=== PATIENT | female | born 1960 | race Caucasian/White ===

== ENCOUNTER 2021-04-19 09:49 | Day surgery (SDC) | payer BC, OTHER ==
[~2021-04-19 09:49] MED LIST: Lactated Ringers 1,000 ML IV SCH; Sodium Chloride 0.9% 10 ML Syringe FLUSH PRN
[2021-04-19] MEDS ORDERED: fentaNYL 100 MCG/2 ML SDV ONE (10:36)
[2021-04-19] MEDS ORDERED: Propofol 200 MG/20 ML SDV ONE ×2 (10:36→11:26)
--- NOTE | 2021-04-20 07:16 | OR ---
PREOPERATIVE DIAGNOSIS: History of ulcerative colitis with rectal bleeding over the past month. This is more prominent than previous episodes. Her last colonoscopy was 02/2018 and revealed a 12 cm stretch of proctitis at that time. She had previously seen GI in [place]. Lately, she has been using Proctofoam, but not the last couple of days in preparation of the colonoscopy. She is also on Simponi for both her rheumatoid arthritis as well as ulcerative colitis. POSTOPERATIVE DIAGNOSES: 1. 5 cm stretch of moderate proctitis. Cold biopsy x4 bites taken. 2. Long tortuous colon. 3. Normal-appearing distal ileum. Cold biopsy x2 bites taken. 4. Otherwise, normal-appearing colonic mucosa. Random biopsies were taken and by right colon, transverse colon, left colon, and distal sigmoid colon. PROCEDURE: Colonoscopy with cold biopsies taken from 6 different sites using cold forceps. SURGEON: Aubrey Brian M.D. ANESTHESIA: Monitored anesthesia care. BOWEL PREP: Good. DESCRIPTION OF PROCEDURE: Caitlin is a 60-year-old female who was brought to the endoscopy suite after discussing risks and benefits of the procedure. Informed consent was obtained for conscious sedation and colonoscopy with or without biopsy and/or polypectomy. We also discussed possibility of missed lesions. Pre-procedure exam was unremarkable. IV, oxygen, and monitors were placed. The patient was placed in the left lateral decubitus position. Sedation was administered and a digital rectal exam was performed and remarkable for some noninflamed external hemorrhoidal skin tags. Colonoscope was passed in the rectum and slowly advanced all the way to the cecum. The patient did have a long tortuous colon and did require lots of scope maneuvering as well as abdominal pressure and moving the patient onto her back. The cecum was viewed and photographed. Ileocecal valve was able to be intubated at this time and was normal in appearance. Cold biopsy x2 bites taken from the distal ileum. The colonoscope was slowly withdrawn. Mucosa closely observed in direct circumferential manner. Random biopsies were taken and by each segment, which included the right colon, transverse colon, left colon, and distal sigmoid colon. The ascending colon, otherwise unremarkable. Transverse colon, unremarkable. Descending colon, unremarkable. Sigmoid colon, unremarkable. Retroflexion was performed and the distal rectal mucosa was moderately inflamed in the last 5 cm or so. Cold biopsy x4 bites taken. Scope was removed. The patient tolerated the procedure well. The patient was monitored until that baseline status. Discharge instructions were reviewed and the patient was discharged in good condition. COMPLICATIONS: None. TOTAL TIME: 42 minutes. ESTIMATED BLOOD LOSS: 3 to 4 mL as the rectal area was quite friable and bled easily. RECOMMENDATIONS/FOLLOWUP: We will await results of path report and send a letter with results. The patient can resume her Proctofoam which should work well at controlling the distal proctitis. If ongoing symptoms, I would encourage her to follow up with Gastroenterology. I would like to kindly thank Dr. Lao for this referral. DMB: 04/19/2021 13:02:55 MODL: 04/19/2021 15:08:41 /[id number]
== END 2021-04-19 13:00 | disposition home or self-care (01) ==
LOC: VM.SDS 09:49
PROVIDERS: ATTEND Family Medicine
DX: K51.911 Ulcerative colitis, unspecified with rectal bleeding (principal); K62.89 Other specified diseases of anus and rectum; E03.9 Hypothyroidism, unspecified; Z79.899 Other long term (current) drug therapy; Z88.8 Allergy status to other drugs, medicaments and biological substances; Z88.2 Allergy status to sulfonamides; E66.9 Obesity, unspecified; K21.9 Gastro-esophageal reflux disease without esophagitis; Z98.890 Other specified postprocedural states
CPT/HCPCS: 00811; J2704; J3010; J7120

== ENCOUNTER 2024-04-15 08:32 | Day surgery (SDC) | payer BC, OTHER ==
[2024-04-15] MEDS: Lactated Ringers 1,000 ML IV SCH (08:49)
[2024-04-15] MEDS ORDERED: fentaNYL 100 MCG/2 ML SDV ONE (09:12)
[2024-04-15] MEDS ORDERED: Propofol 200 MG/20 ML SDV ONE (09:12)
== END 2024-04-15 12:10 | disposition home or self-care (01) ==
LOC: VM.SDS 08:32
PROVIDERS: ATTEND Family Medicine
DX: K62.89 Other specified diseases of anus and rectum (principal); K62.5 Hemorrhage of anus and rectum; K64.9 Unspecified hemorrhoids; E03.9 Hypothyroidism, unspecified; K21.9 Gastro-esophageal reflux disease without esophagitis; M06.9 Rheumatoid arthritis, unspecified; Z87.891 Personal history of nicotine dependence; Z79.890 Hormone replacement therapy; Z79.899 Other long term (current) drug therapy; Z88.5 Allergy status to narcotic agent; Z88.8 Allergy status to other drugs, medicaments and biological substances
CPT/HCPCS: 00811; J2704; J3010; J7120